=== PATIENT | male | born 2000 | race African-American/Black ===

== ENCOUNTER 2024-01-15 01:37 | Emergency (ER) | payer OTHER, SELFPAY ==
[2024-01-15 02:58] LABS: Anion Gap 13 mmol/L (10-20); BUN (Urea Nitrogen) 14 mg/dL (8.9-20.6); Calc. Creatinine Clearance 0 mL/min (70-130); Calcium 9.3 mg/dL (7.8-10.44); Carbon Dioxide 23 mmol/L (22-29); Chloride 105 mmol/L (98-107); Estimated GFR 115; Glucose 105 mg/dL (70-105); Potassium 3.7 mmol/L (3.5-5.1); Sodium 137 mmol/L (136-145)
[2024-01-15 03:00] LABS: Troponin I Less than 0.010 ng/mL (< 0.028)
[2024-01-15] MEDS ORDERED: Ketorolac Tromethamine 30 MG (1 mL) VIAL ONE (04:42)
[2024-01-15] MEDS ORDERED: Iopamidol 370 76% 100 ML VIAL ONE (10:34)
== END 2024-01-15 05:12 | disposition home or self-care (01) ==
LOC: CSHERS 01:37
DX: R07.89 Other chest pain (principal)
CPT/HCPCS: 36415; 71045; 71275; 80048; 83880; 84484; 85379; 93005; 96374; J1885; Q9967